=== PATIENT | female | born 1990 | race African-American/Black ===

== ENCOUNTER 2024-05-07 11:46 | Emergency (ER) | payer SELFPAY ==
[2024-05-07 11:53] VITALS: BP 149/87
--- NOTE | 2024-05-07 12:50 | ED.GENMED ---
History of Present Illness
General
Chief Complaint: Musculo-Skeletal Complaint
Source: patient
Exam Limitations: none
Time Seen by Provider: 05/07/24 12:19
Nursing documentation reviewed up to this point in time: agreed with
History of Present Illness
History of Present Illness:
34 yr old female presents to the ER with c/o of right hand pain. 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 She is right-hand dominant. She did
take ibuprofen today.
Review of Systems
Review of Systems
Allergies reviewed?: Yes
All Other Systems: ROS reviewed and negative except as documented in HPI and ROS
Constitutional: Reports no symptoms
Musculoskeletal: Reports other (right hand pain /swelling )
Skin: Reports no symptoms
Neurological: Reports no symptoms
Psychiatric: Reports no symptoms
Phy Exam
General Physical Exam
General Presentation: no apparent distress
General age: appears stated age
General Skin: warm and dry
General Habitus: normal
General Mental: alert
General Hydration: appears well hydrated
Neurological Exam
Neurological Exam: alert and oriented x3
Musculoskeletal Exam
Musculoskeletal Exam: other (RUE with strong pulses + mild soft tissue swelling to dorsum of right hand between thumb and index finger however no bony tenderness normal distal sensation normal cap refill)
Skin Exam
Skin Exam: normal color and warm/dry
Psychiatric Exam
Psychiatric Exam: normal mood/affect
Course
Orders/Labs/Results
Orders:
Orders
05/07/24 12:00
CR Hand - Right Min 3 Views Urgent
Comment:
Reason For Exam: injury/pain/swelling
Vital Signs
Initial and Last Documented VS:
Initial Vital Signs
Temp Pulse Resp BP Pulse Ox
98.5 F 89 18 149/87 98
05/07/24 11:53 05/07/24 11:53 05/07/24 11:53 05/07/24 11:53 05/07/24 11:53
Last Documented Vital Signs
Temp Pulse Resp BP Pulse Ox
98.5 F 89 18 149/87 98
05/07/24 11:53 05/07/24 11:53 05/07/24 11:53 05/07/24 11:53 05/07/24 11:53
MDM/Problems Addressed
Differential Diagnosis Includes:
Not limited to sprain strain fracture
MDM/Problems Addressed:
Symptoms are consistent with right hand sprain. There is inflammation of the right hand however no fracture on x-ray will DC with Velcro preformed thumb spica for supportive care and Motrin ice
*Radiology
Radiology exam reviewed: radiology read reviewed
*Pulse Oximetry
Patient hypoxic: no
*Critical Care Note
Total Time (30-74mins, 75-104mins- exclusive of procedures): Not Applicable
ED Attending Note
-
Portions of this chart may have been created with voice recognition software.� Occasional wrong word or��sound alike� substitutions may have occurred due to the inherent limitations of voice recognition software.
Discharge Plan
Departure
Patient Disposition: Home (Routine Discharge)
Date of Disposition: 05/07/24
Time of Disposition: 12:44
Patient with high blood pressure during this ER visit?: Yes
Condition: Fair
Covid-19: Not Applicable
Discharge Problem:
strain
Instructions: Muscle Strain (DC)
Activity Restrictions/Additional Instructions:
Ice affected area for the first 24 hours 20 minutes a time several times a day, ibuprofen every 8 hours with food.
Wear Velcro splint for support. Remove at night while sleeping. Follow-up with work comp as needed and extremities return if any worsening of symptoms.
Interventions
Interventions:
*Risk Screen - Suicide Last Done: 05/07/24 11:55
*Neglect/Abuse Screening Last Done: 05/07/24 11:55
ED- Fall Risk Assessment Last Done: 05/07/24 12:50
*ED COVID-19 Vaccine History Last Done: 05/07/24 11:55
*Nursing Disposition Last Done: 05/07/24 12:55
ED-Musculoskeletal Assessment Last Done: 05/07/24 12:50
Discharge Date and Time
Discharge Date/Time: 05/07/24 12:55
Print Language: ROMANSH
== END 2024-05-07 12:55 | disposition home or self-care (01) ==
LOC: EMR 11:46
PROVIDERS: EMERGENCY PHYSICIAN Emergency Medicine
DX: S66.911A Strain of unspecified muscle, fascia and tendon at wrist and hand level, right hand, initial encounter (principal); X50.0XXA Overexertion from strenuous movement or load, initial encounter; Y99.0 Civilian activity done for income or pay
CPT/HCPCS: 99283; 29125; 73130